=== PATIENT | female | born 1950 | race Caucasian/White ===

== ENCOUNTER → 2017-01-31 | Outpatient (CLI) | payer MEDICARE ==
[~2017-01-31] MED LIST: ALEN70TA5 PO; ASPI-621 PO; ATEN25TA PO; ATOR40TA78 PO; MULT-658 PO; NAPR220T29 PO
[2017-01-31 09:58] LABS: HEMOGLOBIN 15.2 g/dL (11.7-16.4)
[2017-01-31 10:10] LABS: BLOOD UREA NITROGEN 17 mg/dL (7-18)
== END | disposition home or self-care (01) ==
LOC: STAR 08:58
PROVIDERS: ATTEND Neurological Surgery
DX: Z01.818 Encounter for other preprocedural examination (principal); M48.02 Spinal stenosis, cervical region; R79.1 Abnormal coagulation profile
CPT/HCPCS: 36415; 80048; 85025; 85610; 85730; 93005

== ENCOUNTER 2017-02-09 05:51 | Day surgery (SDC) | payer MEDICARE ==
[~2017-02-09] VITALS: Ht 171.4 cm; Wt 88.0 kg
[2017-02-09] MEDS ORDERED: LACTATED RINGERS 1,000 ML IV SCH (06:41)
[2017-02-09 06:42] VITALS: BP 145/87
[2017-02-09] MEDS ORDERED: THROMBIN 5,000 UNIT VIAL TP ONE (06:52)
[2017-02-09] MEDS ORDERED: BUPIVACAINE/PF-EPI 0.5% 1:200K ONE (06:52)
[2017-02-09] MEDS ORDERED: BACITRACIN 50,000 UNIT ONE (06:53)
[2017-02-09] MEDS ORDERED: MIDAZOLAM 1 MG/ML, 2ML ONE (06:58)
[2017-02-09] MEDS ORDERED: FENTANYL PF 250 MCG/5ML ONE (06:58)
[2017-02-09] MEDS ORDERED: REMIFENTANIL 2 MG ONE (06:59)
[2017-02-09] MEDS ORDERED: LIDOCAINE 1%, 2ML SQ PRN (07:00)
[2017-02-09] MEDS ORDERED: PROMETHAZINE 25 MG/ML, 1ML IV PRN (08:30)
[2017-02-09] MEDS ORDERED: ALBUTEROL SULFATE 2.5 MG/3 ML NPPB PRN (08:30)
[2017-02-09] MEDS ORDERED: ONDANSETRON 2MG/ML, 2ML IVPush PRN (08:30)
[2017-02-09] MEDS ORDERED: MIDAZOLAM 1 MG/ML, 2ML IV PRN (08:30)
[2017-02-09] MEDS ORDERED: HYDROmorphone 1 MG/ML, 1ML IV PRN (08:30)
[2017-02-09] MEDS ORDERED: EPHEDRINE 50 MG/ML, 1ML IVPush PRN (08:30)
[2017-02-09] MEDS ORDERED: MEPERIDINE/PF 25MG/0.5ML IVPush PRN (08:30)
[2017-02-09] MEDS ORDERED: OXYcodone 5 MG/5 ML ORAL.SOL UDC PO PRN (08:30)
[2017-02-09] MEDS ORDERED: LABETALOL 5MG/ML, 20ML IV PRN (08:30)
[2017-02-09] MEDS ORDERED: hydrALAzine 20 MG/ML, 1ML IV PRN (08:30)
[2017-02-09] MEDS ORDERED: METOPROLOL 1 MG/ML, 5ML IV PRN (08:30)
[2017-02-09] MEDS ORDERED: ACETAMINOPHEN 325 MG TABLET PO PRN (08:30)
[2017-02-09] MEDS ORDERED: ACETAMINOPHEN 650 MG/20.3 ML UDC ONE (09:47)
[2017-02-09] MEDS ORDERED: DIAZEPAM 5 MG/ML, 2ML ONE (09:47)
[2017-02-09] MEDS ORDERED: FENTANYL PF 100 MCG/2ML ONE (09:47)
[2017-02-09] MEDS ORDERED: OXYcodone 5 MG/5 ML ORAL.SOL UDC ONE (09:48)
[2017-02-09] MEDS ORDERED: ACETAMINOPHEN 325 MG TABLET ONE (09:48)
[2017-02-09] MEDS: DIAZEPAM 5 MG/ML, 2ML IVPush PRN ×2 (10:02→10:32)
[2017-02-09] MEDS: FENTANYL PF 100 MCG/2ML IV PRN ×3 (10:14→10:35)
[2017-02-09] MEDS ORDERED: ONDANSETRON 2MG/ML, 2ML ONE (11:04)
[2017-02-09] MEDS ORDERED: CEFAZOLIN 1,000 MG ONE (11:04)
[2017-02-09] MEDS ORDERED: PROPOFOL 10 MG/ML, 20ML ONE (11:04)
[2017-02-09] MEDS ORDERED: ROCURONIUM 10 MG/ML ONE (11:04)
[2017-02-09] MEDS ORDERED: GLYCOPYRROLATE 0.2MG/1ML ONE (11:04)
[2017-02-09] MEDS ORDERED: NEOSTIGMINE 1 MG/ML, 10ML ONE (11:04)
[2017-02-09] MEDS ORDERED: PROPOFOL 10 MG/ML, 50ML ONE (11:04)
[2017-02-09] MEDS ORDERED: DEXAMETHASONE 4 MG/ML, 1ML ONE (11:04)
[2017-02-09] MEDS ORDERED: SUCCINYLCHOLINE 20 MG/ML, 10ML ONE (11:04)
[2017-02-09] MEDS ORDERED: OXYcodone/APAP 10/325MG TABLET ONE (14:18)
[2017-02-09] MEDS ORDERED: OXYcodone/APAP 10/325MG TABLET PO PRN (15:00)
== END 2017-02-09 16:25 | disposition home or self-care (01) ==
LOC: OUT 05:51
PROVIDERS: ATTEND Neurological Surgery
DX: M48.02 Spinal stenosis, cervical region (principal); M54.12 Radiculopathy, cervical region; M54.14 Radiculopathy, thoracic region; I10 Essential (primary) hypertension
CPT/HCPCS: 63020; 63055; 72040; 95938; 95941; C1713; J0330; J0690; J1100; J2250; J2405; J2704; J2710; J3010; J3360; J7120; J3490